=== PATIENT | female | born 1980 | race African-American/Black ===

== ENCOUNTER → 2021-03-02 10:35 | Outpatient (BNVA) | payer OTHER, SELFPAY | PROVIDERS: Visit Provider Nurse Practitioner Family | DX: Z20.822 Contact with and (suspected) exposure to COVID-19 (principal); J06.9 Acute upper respiratory infection, unspecified | CPT/HCPCS: 87635 ==

== ENCOUNTER 2023-05-08 16:50 | Emergency (ER) | payer OTHER, SELFPAY ==
[2023-05-08 17:02] VITALS: BP 153/90; PULSE 63; RESP 16; TEMP 36.6; O2SAT 100; BMI 26.7
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
[2023-05-08] MEDS: ibuprofen 800 mg tablet PO (19:05)
[2023-05-08 22:29] VITALS: PULSE 89; O2SAT 98
== END 2023-05-08 20:09 | disposition home or self-care (01) ==
PROVIDERS: Emergency Provider Emergency Medicine
DX: M79.18 Myalgia, other site (principal); V89.2XXA Person injured in unspecified motor-vehicle accident, traffic, initial encounter
CPT/HCPCS: 70450; 71045; 73110; 99284

== ENCOUNTER → 2023-10-12 14:25 | Outpatient (BNVA) | payer OTHER, SELFPAY | PROVIDERS: Referring Provider Family Medicine; Visit Provider Orthopaedic Surgery | DX: M54.2 Cervicalgia (principal); M54.9 Dorsalgia, unspecified; M47.22 Other spondylosis with radiculopathy, cervical region | CPT/HCPCS: 72050; 72072 ==

== ENCOUNTER 2023-11-23 09:56 | Outpatient (CLI) | payer OTHER, SELFPAY ==
--- NOTE | 2023-11-23 10:15 | MR_ITS ---
WS: [id number] MRI CERVICAL SPINE NONCONTRAST HISTORY: neck pain, LEFT arm numbness. COMPARISON: Radiograph 10/12/2023 Technique: Multiplanar, multisequence noncontrast imaging of the cervical spine. Slight retrolisthesis of C5 and C6. No fractures or marrow edema. Signal within the cervical cord is normal. Visualized posterior fossa is unremarkable. Craniocervical junction, C1 and C2 relationship, odontoid process and soft tissues are normal. C2-C3: Normal. C3-C4: Small foraminal osteophytes. No stenosis. C4-C5: Normal. C5-C6: Annular disc bulging with a central protrusion contacting the thecal sac and moderate size jose martin ateral foraminal osteophytes. Disc osteophyte contacts the ventral thecal sac and cervical cord. Mode rate central and mild RIGHT foraminal stenosis. Moderate LEFT foraminal stenosis due to disc osteophy te disease. C6-C7: Diffuse annular disc bulging with osteophytic ridging and a central disc protrusion contacting the thecal sac and cervical cord. Moderate central and bilateral foraminal stenosis, LEFT greater th an RIGHT. C7-T1: Tiny central disc protrusion with no stenosis. Paraspinal soft tissue are normal. MR/MR cervical spin wo con* [id number] IMPRESSION: 1. C5-6: Moderate central and LEFT foraminal stenosis with mild RIGHT foramina l stenosis due to disc and osteophyte disease. 2. C6-7: Moderate central with bilateral foraminal stenosis, LEFT greater than RIGHT. Stenosis due to disc and osteophyte disease. 3. Tiny central disc protrusion at C7-T1.
== END 2023-11-23 09:57 | disposition home or self-care (01) ==
LOC: RAD 09:56
PROVIDERS: Visit Provider Orthopaedic Surgery
DX: M99.61 Osseous and subluxation stenosis of intervertebral foramina of cervical region (principal); M25.78 Osteophyte, vertebrae; M50.20 Other cervical disc displacement, unspecified cervical region; M51.24 Other intervertebral disc displacement, thoracic region
CPT/HCPCS: 72141